=== PATIENT | female | born 2000 | race Caucasian/White ===

== ENCOUNTER 2020-02-22 05:13 | Inpatient (IN) | payer OTHER ==
[~2020-02-22] VITALS: Ht 185.4 cm; Wt 104.5 kg
[2020-02-22] VITALS (9 sets, daily range): BP systolic 104–139; BP diastolic 60–78
[~2020-02-22 05:13] MED LIST: PRENTAB55 PO
[2020-02-22] MEDS ORDERED: MAPA500T2 PO (05:33)
[2020-02-22 06:22] LABS: HEMATOCRIT 36.3 % (36.0-47.0); HEMOGLOBIN 12.5 g/dl (12.0-15.5); MEAN CORPUSCULAR HEMOGLOBIN 30.5 pg (27.0-33.0); MEAN CORPUSCULAR HGB CONC 34.4 g/dl (32.0-36.5); MEAN CORPUSCULAR VOLUME 88.5 fl (80.0-96.0); PLATELET COUNT, AUTOMATED 241 10^3/uL (150-450); WHITE BLOOD COUNT 10.2 10^3/uL (4.0-10.0)
[2020-02-22] MEDS: LR 1,000 ML IV SCH ×2 (06:30→14:30)
[2020-02-22] MEDS ORDERED: LR 1,000 ML IV ONE (06:30)
[2020-02-22] MEDS ORDERED: ceFAZolin SOD 2 GM in IV 1 EA IV ONE (06:30)
[2020-02-22] MEDS ORDERED: AZITHROMYCIN INJ 500 MG, VIAL MATE ADAPTER 1 EACH in D5W 250 ML IV ONE (06:30)
[2020-02-22] MEDS ORDERED: BICITRA 30ML SOLN UDC PO ONE (06:30)
[2020-02-22] MEDS ORDERED: BUPIVACAINE HCL 0.25% 10ML VIAL XX ONE (06:30)
[2020-02-22] MEDS ORDERED: ACETAMINOPHEN 650 MG SUPP PR ONE (06:30)
[2020-02-22] MEDS ORDERED: NALOXONE INJ 0.4MG/1ML VIAL (J2310 PER 1MG) IV PRN ×2 (07:39)
[2020-02-22] MEDS ORDERED: METOCLOPRAMIDE INJ 10MG/2ML VIAL (J2765 PER 1) IV PRN (07:39)
[2020-02-22] MEDS ORDERED: NALBUPHINE HCL 10 MG/ML AMP (J2300) IV PRN (07:39)
[2020-02-22] MEDS ORDERED: diphenhydrAMINE 50MG/ML VIAL (J1200) IV PRN (07:39)
[2020-02-22] MEDS ORDERED: ONDANSETRON 4MG/2ML VIAL IV PRN ×3 (07:39→09:45)
[2020-02-22] MEDS ORDERED: MORPHINE PRES-FREE INJ 10 MG/10 ML VIAL (J2274) As Ordered ONE (07:45)
[2020-02-22] MEDS ORDERED: OXYTOCIN INJ 10 UNITS/ML VIAL (J2590) As Ordered ONE (07:45)
[2020-02-22] MEDS ORDERED: FAMOTIDINE/NS 20 MG/50 ML BAG (S0028) As Ordered ONE (07:51)
[2020-02-22] MEDS ORDERED: ONDANSETRON 4MG/2ML VIAL As Ordered ONE (08:12)
[2020-02-22 08:43] LABS: CORD GAS ABE A -5.2; CORD GAS HCO3 A 26.6 MEQ/L; CORD GAS O2 SAT A 15.5 %; CORD GAS PCO2 A 85.1 mmHg; CORD GAS PH A 7.113 UNITS; CORD GAS PO2 A 14.6 mmHg; CORD GAS SBC A 18.3 MEQ/L; CORD GAS TCO2 A 29.2 MEQ/L
[2020-02-22] MEDS ORDERED: LR 1,000 ML IV SCH (08:44)
[2020-02-22] MEDS ORDERED: OXYTOCIN DRIP 30 UNITS in IV 1 EA IV SCH (08:44)
[2020-02-22] MEDS ORDERED: ANUSOL HC CREAM 30GM TOP PRN (08:45)
[2020-02-22] MEDS ORDERED: MEASLES,MUMPS,RUBELLA VACCINE INJ (MMR-II) (90707) SC SCH (08:45)
[2020-02-22] MEDS ORDERED: PERCOCET 5MG/325MG TAB PO PRN (08:45)
[2020-02-22] MEDS ORDERED: KETOROLAC 30 MG/ML 1ML VIAL IV SCH (08:45)
[2020-02-22] MEDS ORDERED: MOM 30ML SUSPENSION UDC PO PRN (08:45)
[2020-02-22] MEDS ORDERED: RHOGAM 300 MCG (1500 IU) INJ (J2790) IM SCH (08:45)
[2020-02-22 08:46] LABS: CORD GAS HCO3 V 21.2 MEQ/L; CORD GAS O2 SAT V 89.6 %; CORD GAS PCO2 V 43.4 mmHg; CORD GAS PH V 7.307 UNITS; CORD GAS PO2 V 47.8 mmHg; CORD GAS SBC V 20.2 MEQ/L; CORD GAS TCO2 V 22.5 MEQ/L
[2020-02-22] MEDS ORDERED: KETOROLAC 30 MG/ML 1ML VIAL As Ordered ONE (09:45)
[2020-02-22] MEDS ORDERED: MEPERIDINE INJ 25 MG/ML VIAL (J2175) IV PRN (09:45)
[2020-02-22] MEDS ORDERED: oxyCODONE 5MG TAB PO PRN (09:45)
[2020-02-22] MEDS ORDERED: KETOROLAC 30 MG/ML 1ML VIAL IV PRN (09:45)
[2020-02-22] MEDS ORDERED: OXYTOCIN 30 UNITS IN 0.9% NaCl 500ML IV BAG (J2590) As Ordered ONE (09:45)
[2020-02-22] MEDS ORDERED: fentaNYL 100 MCG/2 ML INJECTION (J3010) IV PRN (09:45)
[2020-02-22] MEDS: KETOROLAC 30 MG/ML 1ML VIAL IV SCH ×3 (09:49→22:10)
[2020-02-22] MEDS: DOCUSATE SODIUM 100 MG CAP PO SCH ×2 (13:35→22:10)
[2020-02-22] MEDS: PRENATAL VITAMINS CHEWABLE TABLET PO SCH (13:35)
[2020-02-22 14:53] LABS: APPEARANCE, URINE HAZY (CLEAR); BACTERIA, URINE AUTO NEGATIVE (NEGATIVE); BILIRUBIN, URINE AUTO NEGATIVE (NEGATIVE); BLOOD, URINE BLOOD 1+ (NEGATIVE); COLOR, URINE YELLOW (YELLOW); GLUCOSE, URINE (UA) AUTO NEGATIVE (NEGATIVE); KETONE, URINE AUTO 2+ mg/dL (NEGATIVE); LEUKOCYTE ESTERASE, URINE AUTO 3+ (NEGATIVE); MUCUS, URINE SMALL (NEGATIVE); NITRITE, URINE AUTO NEGATIVE (NEGATIVE); PROTEIN, URINE AUTO NEGATIVE (NEGATIVE); RBC, URINE AUTO 9 /HPF (0-3); SPECIFIC GRAVITY URINE AUTO 1.015 (1.002-1.035); SQUAMOUS EPITHELIAL CELL UR AU 0 /HPF (0-6); UROBILINOGEN, URINE AUTO 0.2 mg/dL (0.0-2.0); WBC, URINE AUTO 65 /HPF (0-3)
[2020-02-23] VITALS (7 sets, daily range): BP systolic 104–127; BP diastolic 51–68
[2020-02-23] MEDS: KETOROLAC 30 MG/ML 1ML VIAL IV SCH (03:57)
[2020-02-23] MEDS: PRENATAL VITAMINS CHEWABLE TABLET PO SCH (07:49)
[2020-02-23] MEDS: DOCUSATE SODIUM 100 MG CAP PO SCH ×2 (07:49→19:48)
[2020-02-23 08:23] LABS: HEMATOCRIT 34.6 % (36.0-47.0); HEMOGLOBIN 11.4 g/dl (12.0-15.5); MEAN CORPUSCULAR HEMOGLOBIN 29.9 pg (27.0-33.0); MEAN CORPUSCULAR HGB CONC 32.9 g/dl (32.0-36.5); MEAN CORPUSCULAR VOLUME 90.8 fl (80.0-96.0); PLATELET COUNT, AUTOMATED 241 10^3/uL (150-450); RED BLOOD COUNT 3.81 10^6/uL (4.00-5.40); WHITE BLOOD COUNT 11.7 10^3/uL (4.0-10.0)
[2020-02-23] MEDS: PERCOCET 5MG/325MG TAB PO PRN (11:09)
[2020-02-23] MEDS: IBUPROFEN 800 MG TAB PO SCH ×2 (11:58→19:49)
--- NOTE | 2020-02-24 01:27 | IPNPDOC ---
Progress Note Date of Service: Feb 24, 2020 Day#: 2 Progress Note SUBJECT: Patient is a 19-year-old 1 now Para 1 status post uncomplicated PLTCS delivery for breech presentation, doing well postop day # 2. She has been ambulating, voiding spontaneously without issue and tolerating regular diet. Breast feeding without issue. Reports lochia is like normal period. Patient is ambulating well. Reports some cramping with . Has significant pain on left side of incision. OBJECTIVE: VITAL SIGNS: Within normal limits, afebrile. GENERAL: No acute distress HEENT: MMM BREAST: Nontender, no erythema CARDIOVASCULAR EXAMINATION: RRR RESPIRATORY EXAMINATION: Bilaterally clear ABDOMINAL EXAMINATION: Soft, appropriate tenderness L>R, nondistended, fundus -1 PERINEUM: Intact, minimal lochia EXTREMITIES: no edema, nontender WOUND: Dressing clean and intact ASSESSMENT: Patient is a 19-year-old 1 now Para 1 status post uncomplicated PLTCS delivery for breech presentation, doing well postop day # 2. Vitals within normal limits, afebrile, hemodynamically stable with no evidence of infection. PLAN: 1. Continue care. 2. Tylenol and Motrin and percocet for pain. D/w patient on receiving medication earlier to onset of pain. 3. Encourage breast feeding and ambulation. VS, I&O, 24H, Fishbone Vital Signs/I&O Vital Signs Date Time Temp Pulse Resp B/P (MAP) Pulse Ox O2 Delivery O2 Flow Rate FiO2 02/23/20 22:00 97.0 79 18 115/63 (80) 98 Room Air Laboratory Data 24H LABS Laboratory Tests 2 02/23/20 07:45: Nucleated Red Blood Cells % (auto) 0.0 CBC/BMP Laboratory Tests 02/23/20 07:45 Microbiology Microbiology 02/22/20 Urine Culture - Final, Complete Corynebacterium Species Idania Levi MD Feb 24, 2020 01:27
[2020-02-24 02:00] VITALS: BP 117/66
[2020-02-24] MEDS: PERCOCET 5MG/325MG TAB PO PRN ×2 (02:31→03:31)
[2020-02-24] MEDS: IBUPROFEN 800 MG TAB PO SCH (03:32)
[2020-02-24 06:00] VITALS: BP 114/70
[2020-02-24] MEDS ORDERED: PERCOCET PO (07:07)
[2020-02-24] MEDS ORDERED: DOCU100C16 PO (07:07)
[2020-02-24] MEDS ORDERED: IBUP80TA PO (07:07)
[2020-02-24] MEDS: DOCUSATE SODIUM 100 MG CAP PO SCH (07:45)
[2020-02-24] MEDS: PRENATAL VITAMINS CHEWABLE TABLET PO SCH (07:45)
--- NOTE | 2020-03-13 12:54 | RO ---
DATE OF OPERATION: 02/22/2020 PREOPERATIVE DIAGNOSES: 1. Trevor breech presentation. 2. Oligohydramnios. POSTOPERATIVE DIAGNOSES: 1. Trevor breech presentation. 2. Oligohydramnios. OPERATION PROPOSED: Primary section. OPERATION PERFORMED: Primary section. ANESTHESIA: Spinal plus local anesthetic for intraperitoneal procedures. ESTIMATED BLOOD LOSS: 400 mL. SURGEON: Dr. Salinas LEAD PROCESS ENGINEER: Dr. Payne for extraction, retraction, visualization, with which procedure could not be completed. DESCRIPTION OF OPERATION: After adequate anesthesia, prepped and draped in the supine position. Carlos catheter to bladder draining clear urine. Appropriate antibiotics preoperatively. Sequentials in place. Acetaminophen suppository 1300 mg per rectum. Time-out was performed. A Pfannenstiel incision was made two finger breadths above the symphysis pubis, passing through abdominal layers, securing hemostasis. Opening the peritoneal cavity, we put a Mobius in, and a low transverse incision was made into the uterus. Artificial rupture of membranes draining clear liquor. We delivered a live- male , 3650 grams, 8 pounds 1 ounce. scores are 4, 8, and 9 and one, five, and 10 minutes, respectively. Arterial pH was 7.11, base excess -5.2, venous pH 7.30, base excess -5.0. The placenta was manually removed. Three vessels in the cord. Membranes and tissues intact. The uterus was swept clean. The lower segment was oversewn in the usual fashion, imbricating the second layer. With instrument and pad count correct, both ovaries appeared to be normal, the Mobius was removed. The abdomen was closed with running stitches through the peritoneum, same for the fascia, interrupted for subcutaneous, subcuticular stitch. Then Marcaine 0.25% 10 mL for analgesic. An Optifoam dressing was placed. Patient was then taken to recovery in good condition. NICOLE
--- NOTE | 2020-03-15 13:27 | IPN ---
DATE: 02/22/2020 This patient requested circumcision of her male . After discussing the risks and benefits of circumcision, the medical to non-medical indications, the penile block and aftercare, expressed understanding of penile block, aftercare, and bleeding, signed the consent form. All questions were answered. 20 minute discussion. We await the clearance by the vice provost. NICOLE
--- NOTE | 2020-03-15 13:31 | IPN ---
DATE: 02/23/2020 POSTOPERATIVE DAY #1: This lady is 1, now para 1, who was admitted for primary section because of persistent breech presentation and oligohydramnios. She underwent a primary section for breech presentation, delivering assisted live- male infant, weighing 8 pounds and 1 ounce, 3,650 grams, Apgars were 9 and 9 at 1 and 5 minutes respectively. Arterial pH was 7.11, base excess was -5.2, venous pH was 7.3 and base excess was -5.0. Apgars were 4, 8 and 9 at 1, 5 and 10 minutes respectively. There was a bit of difficulty extracting the baby out of the abdomen, however, was successful. On her first day, we discussed phlebitis, cystitis, mastitis, endometritis, and cellulitis, diet, exercise, pain management, perineal, breast, and wound care. Admitting hemoglobin 12.5, hematocrit 36.3 and platelet count 241,000. PHYSICAL EXAMINATION: Her vital signs this morning: Blood pressure 126/68, respiratory rate 16, pulse 93, temperature 98.3. The rest of the examination is unremarkable. Normocephalic, atraumatic. Neck full range of motion. Pupils equal and reactive to light. Distal pulses symmetric. No evidence of DVT, PE or superficial phlebitis. Chest is clear bilaterally to bases, no wheezes or rhonchi. No CVA tenderness. Abdomen is soft, four quadrant bowel sounds are noted. Incision has a Mepore dressing and is clean and dry. Patient is mobilizing, passing gas and is voiding well. PLAN: Our plans today is for circumcision of male . Discharge tomorrow morning. Assessment by the special education educational assistant pre-circumcision. All questions were answered. Patient and baby are doing well. SUMMARY: Term gestation delivered by primary section, live- male infant. [facility]
--- NOTE | 2020-04-03 10:51 | HPE ---
DATE OF ADMISSION: 02/22/2020 HISTORY OF PRESENT ILLNESS: This lady is a 19-year-old 1, para 0, last menstrual period 03/26/2019, estimated date of confinement 03/01/2020. She presents with a persistent ronnie breech presentation and low REMY for primary section. Risk factors is she is varicella nonimmune and breech presentation starting at 35 weeks. LABORATORY: A positive, HIV negative, hepatitis negative, RPR negative, rubella immune, varicella nonimmune. Urine showed E. coli. GNC were negative. One hour glucose was 105 and she is GBS negative. PHYSICAL EXAMINATION: On examination today, ronnie breech presentation with low amniotic fluid index (REMY). Vital signs: her blood pressure is 120/72, respirations 18, pulse 78. She weighs 228 pounds. She is 6 feet, 1 inch and her BMI is 26.39. The rest of the examination is unremarkable. Normocephalic, atraumatic. Neck full range of motion. Pupils equal and reactive to light. Distal pulses symmetric. No evidence of deep venous thrombosis (DVT) or superficial phlebitis. Chest is clear bilateral at the bases. No wheezes or rhonchi. No CVA tenderness. Abdomen is soft. Lower quadrant bowel sounds are noted. Presenting part is ronnie breech presentation. She has no rashes, lesions or pruritus. She has multiple piercings. No arthralgia, myalgias or complaints of joint pain. No cough, shortness of breath or dyspnea on exertion. No nausea, vomiting, diarrhea or constipation. No urgency or frequency. No significant ROUTING CLERK history. PAST SURGICAL HISTORY: [place] teeth. Presently, her medications are vitamins. PLAN: She is booked for a primary section because of persistent breech presentation and low REMY. Risks and benefits of the surgery were discussed including hemorrhage, infection, perforation, , re-operation. Remote possibility of blood transfusion, remote possibility of hysterectomy for life threatening bleeding issues. Remote possibility of laceration and/or admission to the NICU. After expressing all questions are answered, the patient's plans are not to breast fed and will do pumping only. Medications were dispensed at [place]. COVID testing will be done 24 hours prior to admitted for primary section. With all questions answered, the patient is awaiting consult from anesthesia. NICOLE
--- NOTE | 2020-04-07 13:41 | DS ---
DATE OF ADMISSION: 02/22/2020 DATE OF DISCHARGE: 02/24/2020 This lady is a 1, now para 1, who was admitted at 38 and 6 weeks of gestation for primary section because of ronnie breech presentation, oligohydramnios. Male who was delivered by section, 8 pounds 1 ounce, 3650 grams, scores of 4, 8, and 9 at one, five, and 10 minutes, respectively. Arterial pH 7.11, base excess -5.2, venous pH 7.30, base excess - 5.0. On the second day we discussed phlebitis, cystitis, mastitis, metritis, and cellulitis, diet, exercise, pain management, and perineal, breast, and wound care. Her medications were dispensed at [place]. She is to have a 2- week incision check at [facility], a 6-week check. Her vital signs on discharge: Blood pressure 117/66, respirations 16, pulse 88, temperature 96.6. Her admitting hemoglobin was 12.5, hematocrit 36.3, and platelets are 241. Discharge hemoglobin 11.4, hematocrit 34.6, and platelets were 241. The rest of the examination unremarkable. Normocephalic, atraumatic. Neck: Full range of motion. Pupils equal and reactive to light. Distal pulses are symmetric. No evidence of deep venous thrombosis (DVT), pulmonary embolus (PE), or superficial phlebitis. Chest is clear bilaterally to bases. No wheezes or rhonchi. No costovertebral angle (CVA) tenderness. Abdomen is soft. Four- quadrant bowel sounds are noted. Incision is clean and dry. She no rashes, lesions, or pruritus. No arthralgia. No myalgia. No complaint of cough, wheeze, shortness of breath, or dyspnea on exertion. No nausea, vomiting, diarrhea, or constipation. No urgency or frequency. Passing gas, voids, and has had a bowel movement. Breast-feeding is going well. Plans are to discharge today. set up worker medications at [facility]. A 2-week incision check, 6-week check at [facility]. All questions were answered. A 20-minute discussion. [facility]
== END 2020-02-24 10:50 | disposition home or self-care (01) | DRG 773 ==
LOC: M LDI 05:13 → M OBS 10:30
PROVIDERS: ADMIT Obstetrics & Gynecology; ATTEND Obstetrics & Gynecology
PROC: 10D00Z1 Extraction of Products of Conception, Low, Open Approach (ICD-10-PCS; principal; 2020-02-22 07:30)
DX: O32.1XX0 Maternal care for breech presentation, not applicable or unspecified (principal); Z37.0 Single live birth; Z3A.39 39 weeks gestation of pregnancy